=== PATIENT | female | born 2000 | race Two or more races ===

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

== ENCOUNTER → 2022-08-28 | Outpatient (CLI) | payer OTHER ==
[~2022-08-28] MED LIST: Permethrin60 GM TOP
== END | disposition home or self-care (01) ==
LOC: LAB 17:11 → LAB SHORT 17:11
DX: J03.90 Acute tonsillitis, unspecified (principal)
CPT/HCPCS: 87081